=== PATIENT | male | born 1995 | race Caucasian/White ===

== ENCOUNTER 2025-06-23 13:32 | Emergency (ER) | payer MEDICAID, OTHER ==
[~2025-06-23] VITALS: Ht 180.3 cm; Wt 81.0 kg
[2025-06-23 13:38] VITALS: TEMP 98.2
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
[2025-06-23 14:11] LABS: Hematocrit 45.6 % (41.0-53.0); Hemoglobin 15.4 g/dL (13.5-17.5); Mean Corpuscular Hemoglobin 29.7 pg (28.0-32.0); Mean Corpuscular Volume 87.8 fL (80.0-100.0); Nucleated Red Blood Cells % 0.0 %
[2025-06-23 14:19] LABS: Chloride 104 mmol/L (98-107); Potassium 4.3 mmol/L (3.5-5.1); Sodium 141 mmol/L (136-145)
[2025-06-23 14:20] LABS: Anion Gap 10 (5-15); Carbon Dioxide 27 mmol/L (20-31)
[2025-06-23 14:21] LABS: Calcium 10.1 mg/dL (8.7-10.4)
[2025-06-23 14:25] LABS: BUN/Creatinine Ratio 16.5 (10.0-20.0); Blood Urea Nitrogen 16 mg/dL (9-23)
[2025-06-23 14:27] LABS: Glucose 106 mg/dL (74-106)
[2025-06-23 14:47] LABS: Cannabinoid Screen, Urine Pos (NEGATIVE)
[2025-06-23 14:48] LABS: Amphetamine Screen, Urine Neg (NEGATIVE); Barbiturate Scree,Urine Neg (NEGATIVE); Benzodiazephine Screen, Urine Neg (NEGATIVE); Cocaine Screen, Urine Neg (NEGATIVE); Opiate Scree,Urine Neg (NEGATIVE); Phencyclidine Screen, Urine Neg (NEGATIVE)
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
[2025-06-23 16:56] VITALS: BP 130/86
[2025-06-23 16:58] VITALS: PULSE 86; RESP 14; O2SAT 98
== END 2025-06-23 17:34 | disposition home or self-care (01) ==
LOC: ER 13:32
DX: R45.6 Violent behavior (principal); R10.9 Unspecified abdominal pain; Z91.128 Patient's intentional underdosing of medication regimen for other reason; Z91.148 Patient's other noncompliance with medication regimen for other reason; Z79.899 Other long term (current) drug therapy
CPT/HCPCS: 36415; 80048; 80307; 80320; 85025